=== PATIENT | male | born 1990 | race Caucasian/White ===

== ENCOUNTER → 2019-08-13 | Outpatient (REF) | payer BC | LOC: M LAB REF 08:31 | PROVIDERS: ATTEND Physician Assistant | DX: D22.9 Melanocytic nevi, unspecified (principal) ==

== ENCOUNTER → 2021-08-24 | Outpatient (CLI) | payer BC ==
[2021-08-24 13:56] LABS: BASO # 0.1 10^3/uL (0.0-0.2); BASO % 1.2 % (0.0-1.0); EOS # 0.1 10^3/uL (0.0-0.5); EOS % 1.2 % (0.0-3.0); HEMATOCRIT 43.9 % (42.0-52.0); HEMOGLOBIN 14.5 g/dl (13.5-17.5); LYMPH # 1.9 10^3/uL (1.5-5.0); LYMPH % 32.9 % (24.0-44.0); MEAN CORPUSCULAR HEMOGLOBIN 30.3 pg (27.0-33.0); MEAN CORPUSCULAR VOLUME 91.8 fl (80.0-96.0); MONO # 0.6 10^3/uL (0.0-0.8); NEUTROPHILS # 3.2 10^3/uL (1.5-8.5); NEUTROPHILS % 54.5 % (36.0-66.0); PLATELET COUNT, AUTOMATED 215 10^3/uL (150-450); RED BLOOD COUNT 4.78 10^6/uL (4.30-6.10); WHITE BLOOD COUNT 5.8 10^3/uL (4.0-10.0)
[2021-08-24 14:30] LABS: ALBUMIN 4.1 GM/DL (3.2-5.2); ALT/SGPT 31 U/L (12-78); BILIRUBIN,TOTAL 0.5 MG/DL (0.2-1.0); BLOOD UREA NITROGEN 17 MG/DL (7-18); CALCIUM LEVEL 9.1 MG/DL (8.5-10.1); CARBON DIOXIDE LEVEL 28 MEQ/L (21-32); CHLORIDE LEVEL 105 MEQ/L (98-107); CHOLESTEROL LEVEL 135 MG/DL (<200); CREATININE FOR GFR 0.87 MG/DL (0.70-1.30); GLOMERULAR FILTRATION RATE > 60.0 (>60); GLUCOSE, FASTING 84 MG/DL (70-100); HDL CHOLESTEROL 56 MG/DL (>40); LDL CHOLESTEROL 62 MG/DL (<100); NON-HDL-C 79 MG/DL; POTASSIUM SERUM 4.5 MEQ/L (3.5-5.1); SODIUM LEVEL 139 MEQ/L (136-145); THYROID STIMULATING HORMONE 0.904 uIU/ML (0.358-3.740); TOTAL PROTEIN 6.8 GM/DL (6.4-8.2); TRIGLYCERIDES LEVEL 86 MG/DL (<150)
== END ==
LOC: M PLALAB 11:27
PROVIDERS: ATTEND Family Medicine
DX: Z00.00 Encounter for general adult medical examination without abnormal findings (principal); R03.0 Elevated blood-pressure reading, without diagnosis of hypertension

== ENCOUNTER → 2023-01-12 | Outpatient (CLI) | payer BC ==
[2023-01-12 16:01] LABS: MONO REFLEX EBV COMP NEGATIVE (NEGATIVE)
[2023-01-14 18:09] LABS: EBV VIRAL CAPSID AG IgM <36.0 U/mL (0.0-35.9)
== END ==
LOC: M PLALAB 11:47
PROVIDERS: ATTEND Registered Nurse
DX: R53.83 Other fatigue (principal)

== ENCOUNTER 2023-07-31 16:12 | Emergency (ER) | payer OTHER ==
[~2023-07-31] VITALS: Ht 190.5 cm; Wt 89.0 kg
[2023-07-31] MEDS ORDERED: AZEL1SPR3 (16:28)
[2023-07-31] MEDS ORDERED: THERTAB52 PO (16:28)
[2023-07-31] MEDS ORDERED: BUSP5TA (16:28)
[2023-07-31 17:32] LABS: BASO % 0.6 % (0.0-1.0); EOS % 0.2 % (0.0-3.0); HEMATOCRIT 44.1 % (42.0-52.0); HEMOGLOBIN 15.2 g/dl (13.5-17.5); LYMPH # 1.8 10^3/uL (1.5-5.0); LYMPH % 32.5 % (24.0-44.0); MEAN CORPUSCULAR HGB CONC 34.5 g/dl (32.0-36.5); MONO # 0.4 10^3/uL (0.0-0.8); MONO % 8.2 % (2.0-8.0); NEUTROPHILS # 3.1 10^3/uL (1.5-8.5); NEUTROPHILS % 58.3 % (36.0-66.0); PLATELET COUNT, AUTOMATED 208 10^3/uL (150-450); WHITE BLOOD COUNT 5.4 10^3/uL (4.0-10.0)
[2023-07-31 17:56] LABS: CK-MB VALUE MASS < 1.0 NG/ML (<3.6)
[2023-07-31 17:58] LABS: BLOOD UREA NITROGEN 13 MG/DL (9-23); CALCIUM LEVEL 9.4 MG/DL (8.5-10.1); CARBON DIOXIDE LEVEL 27 MMOL/L (20-31); CHLORIDE LEVEL 106 MMOL/L (98-107); CPK CREATINE PHOSPHOKINASE 100 U/L (46-171); CREATININE FOR GFR 0.96 MG/DL (0.70-1.30); GLOMERULAR FILTRATION RATE > 60.0 (>60); GLUCOSE, FASTING 101 MG/DL (60-100); POTASSIUM SERUM 4.1 MMOL/L (3.5-5.1); SODIUM LEVEL 140 MMOL/L (136-145)
[2023-07-31] MEDS ORDERED: ISOVUE-370 76% 100ML VIAL As Ordered ONE (21:14)
[2023-07-31 22:08] LABS: CK-MB VALUE MASS < 1.0 NG/ML (<3.6)
[2023-07-31 22:10] LABS: CPK CREATINE PHOSPHOKINASE 93 U/L (46-171); MB/CK RELATIVE INDEX 1.07 (< OR =4)
[2023-07-31 23:00] VITALS: BP 112/74; TEMP 98.2; O2SAT 100
== END 2023-07-31 23:12 | disposition home or self-care (01) ==
LOC: M ED 16:12
DX: R20.2 Paresthesia of skin (principal); F41.9 Anxiety disorder, unspecified; Z88.0 Allergy status to penicillin; Z91.018 Allergy to other foods
CPT/HCPCS: 70450; 70544; 70551; 71045; 71275; 80048; 82550; 82553; 84484; 85025; 93005; 93041; 93971; 94760; 99284; Q9967

== ENCOUNTER → 2023-08-14 | Outpatient (CLI) | payer OTHER ==
[~2023-08-14] MED LIST: AZEL1SPR3; BUSP5TA; THERTAB52 PO
== END ==
LOC: M PLALAB 12:35
PROVIDERS: ATTEND Nurse Practitioner Family
DX: R53.83 Other fatigue (principal)

== ENCOUNTER → 2023-08-17 | Outpatient (CLI) | payer OTHER ==
[2023-08-17 12:14] LABS: RHEUMATOID FACTOR QUANT 4.8 IU/ML (<14)
[2023-08-17 12:16] LABS: FOLATE 21.1 NG/ML (>5.4)
[2023-08-17 14:47] LABS: PTT LUPUS TYPE ANTICOAG SCREEN 0.77 (0-1.20)
[2023-08-18 11:57] LABS: CARDIOLIPIN IGA ANTIBODY 2.3 APL-U/mL (<20.0); CARDIOLIPIN IGG ANTIBODY 3.2 GPL-U/mL (<20.0); CARDIOLIPIN IGM ANTIBODY 4.1 MPL-U/mL (<20.0)
[2023-08-18 15:23] LABS: ANA SCREEN, IFA NEGATIVE (NEGATIVE)
[2023-08-18 16:58] LABS: HOMOCYST(E)INE SERUM 9.7 umol/L (<11.4)
[2023-08-20 23:07] LABS: PROTEIN C FUNCTIONAL ACTIVITY 109 % normal (70-180); PROTEIN S FUNCTIONAL ACTIVITY 108 % normal (70-150)
[2023-08-21 20:57] LABS: ANTI THROMBIN 3 ANTIGEN IMMUNO 110 % normal (80-120)
[2023-08-22 01:48] LABS: VITAMIN E(ALPHA TOCOPHEROL) 18.5 mg/L (5.7-19.9); VITAMIN E(GAMMA TOCOPHEROL) 1.2 mg/L (<=4.3)
== END ==
LOC: M PLALAB 10:05 → M LAB 10:05
PROVIDERS: ATTEND Psychiatry & Neurology Neurology
DX: E11.9 Type 2 diabetes mellitus without complications (principal); G45.9 Transient cerebral ischemic attack, unspecified

== ENCOUNTER → 2023-08-19 | Outpatient (CLI) | payer OTHER ==
[2023-08-19 12:13] LABS: HEMOGLOBIN A1c 5.2 % (4.0-6.0)
== END ==
LOC: M LAB 10:50
PROVIDERS: ATTEND Psychiatry & Neurology Neurology
DX: E11.8 Type 2 diabetes mellitus with unspecified complications (principal); G45.9 Transient cerebral ischemic attack, unspecified

== ENCOUNTER → 2024-06-04 | Outpatient (CLI) | payer OTHER | LOC: M CARPUL 15:46 | PROVIDERS: ATTEND Internal Medicine Cardiovascular Disease | DX: R94.31 Abnormal electrocardiogram [ECG] [EKG] (principal); Z84.89 Family history of other specified conditions ==